=== PATIENT | female | born 2000 | race Asian ===

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

== ENCOUNTER 2022-09-02 14:44 | Emergency (ER) | payer OTHER, SELFPAY ==
[2022-09-02] VITALS (23 sets, daily range): BP systolic 122–148; BP diastolic 67–83; PULSE 57–83; RESP 10–19; TEMP 36.8; O2SAT 98–100
--- NOTE | ~2022-09-02 | XR_ITS ---
XR chest 2V DATE: 09/02/2022 15:16 INDICATION: Chest pain with inspiration for a few days. Cough beginning last night. TECHNIQUE: PA and lateral views COMPARISON: 08/30/11 2 view chest FINDINGS: Status post sternotomy. Normal heart size. No hilar or mediastinal enlargement. No pulmo nary infiltrate or consolidation, pulmonary vascular congestion or pleural effusion or pneumothorax. Mild thoracic dextroscoliosis. Spina bifida occulta at T1. IMPRESSION: No active cardiopulmonary disease Reviewed, dictated and finalized at location A. [employer]
--- NOTE | 2022-09-02 14:55 | ECG_ITS ---
Measurements Intervals Palmer Rate: 60 P: 19 VT: 139 QRS: 31 QRSD: 94 T: 29 QT: 428 QTc: 429 Interpretive Statements SINUS RHYTHM WITH SINUS ARRHYTHMIA CANNOT RULE OUT SEPTAL INFARCT, AGE INDETERMINATE ABNORMAL ECG NO PREVIOUS ECG AVAILABLE FOR COMPARISON Electronically Signed On 09-02-2022 19:52:56 [employer] by Tao Huerta D.O.
[2022-09-02 16:03] LABS: Basophils Absolute Auto 0.1 K/mm3 (0.0-0.1); Eosinophils Absolute Auto 0.2 K/mm3 (0-0.3); Eosinophils Percent Auto 3.4 % (0-4.4); Hemoglobin 13.7 g/dL (12.0-15.0); Immature Granulocyte Absolute 0.01 K/mm3 (0.00-0.031); Immature Granulocyte Percent A 0.2 % (0-0.5); Lymphocytes Absolute Auto 1.76 K/mm3 (0.9-3.2); Lymphocytes Percent Auto 30.3 % (18.3-44.2); Mean Corpuscular HGB Conc 34.3 g/dl (32-36); Mean Corpuscular Hemoglobin 29.8 pg (26-34); Mean Corpuscular Volume 87.1 fl (80-100); Mean Platelet Volume 9.3 fl (7.4-10.4); Monocytes Absolute Auto 0.5 K/mm3 (0.1-0.6); Monocytes Percent Auto 9.1 % (2.6-8.5); Neutrophils Absolute Auto 3.3 K/mm3 (1.3-6.7); Platelet Count Result 318 k/mm3 (150-375); Red Blood Count 4.59 M/mm3 (4.2-5.4); Red Cell Distribution Width 11.9 % (11.5-14.5); White Blood Count 5.8 K/mm3 (4.5-10.0)
[2022-09-02 16:14] LABS: Alanine Aminotransferase 15 U/L (6-35); Albumin Level 4.5 g/dL (3.5-5.1); Alkaline Phosphatase 55 U/L (38-126); Anion Gap 14 mmol/L (8-16); Aspartate Amino Transferase 27 U/L (14-36); Bilirubin,Total 0.3 mg/dL (0.2-1.3); Blood Urea Nitrogen 14 mg/dL (7-17); Calcium 8.8 mg/dL (8.4-10.2); Carbon Dioxide 25 mmol/L (22-30); Chloride 103 mmol/L (98-107); Estimated CRCL calculation 63 ml/min; Estimated Glomerular Filt Rate > 60; Glucose 102 mg/dL (65-110); Potassium 3.8 mmol/L (3.4-5.0); Sodium 142 mmol/L (137-145)
--- NOTE | 2022-09-02 19:11 | ED.SOB ---
HPI - SOB/Dyspnea General Chief Complaint: Shortness of Breath/Dyspnea <Radha Huitron PA-C - Last Filed: 09/03/22 01:02> Stated Complaint: SOB/PAIN W/ INSPIRATION <Radha Huitron PA-C - Last Filed: 09/03/22 01:02> Time Seen by Provider: 09/02/22 19:01 <RESHMA Green Last Filed: 09/03/22 01:02> History of Present Illness HPI Narrative: Patient is a 22-year-old female with a history of VSD s/p repair when she was 5 years old, here for evaluation of chest pain over the past several days. Patient states the pain is present over her left lateral ribs, worse with inspiration. The pain lasts minutes at a time, today the pain lasted for about 10 minutes which prompted her ED evaluation. Currently pain-free at time of my evaluation. She has had a mild cough and states that she has been feeling somewhat short of breath over the past couple days as well. No leg swelling, fevers or chills, sick contacts. Patient had follow-up with a packager since closure; findings were reassuring. She did have an echocardiogram last year that was also repotedly reassuring. <Radha Huitron PA-C - Last Filed: 09/03/22 01:02> Related Data Allergies/Adverse Reactions: Allergies Allergy/AdvReac Type Severity Reaction Status Date / Time red dye Allergy Intermediate RASH Verified 04/03/21 12:00 Iodine and Iodide Containing Allergy Unknown Unknown Verified 04/03/21 12:00 Produc <RESHMA Green Last Filed: 09/03/22 01:02> Review of Systems Review of Systems: Gen.: Denies fevers or chills Eyes: Denies eye pain or visual change ENT: Denies congestion Respiratory: Reports shortness of breath and cough CV: Reports chest pain GI: Denies abdominal pain nausea, emesis or diarrhea denies burning, urgency, frequency or hematuria Musculoskeletal: Denies back pain or muscle pain Neuro: Denies numbness, tingling, weakness or focal weakness Skin: Denies rash Except as documented, all other systems reviewed and negative <Radha Huitron PA-C - Last Filed: 09/03/22 01:02> FOR[facility]LY [facility] Past Medical History Medical History: Medical History VSD (ventricular septal defect) Repaired at age 4, in [place] at age 7 and age 14 <Radha Huitron PA-C - Last Filed: 09/03/22 01:02> Surgical History Surgical History: Surgical History Hx of wisdom tooth extraction <Radha Huitron PA-C - Last Filed: 09/03/22 01:02> Social History Social History: Social History Smoking status: Never smoker Alcohol intake: never Substance use: never Substance use type: does not use <Radha Huitron PA-C - Last Filed: 09/03/22 01:02> Exam Narrative: APPEARANCE: Well appearing, no pain in distress, well-nourished. Head: Normocephalic and atraumatic. EYES: PERRLA/EOMI, conjunctivae clear NOSE: No nasal drainage EARS: External ear normal in appearance THROAT: Oropharynx is clear. Mucous membranes are moist. NECK: Supple. No adenopathy, no masses. RESPIRATORY: Airway patent, respirations nonlabored. Clear to auscultation bilaterally, no rales, rhonchi, wheezing. CARDIOVASCULAR: Regular rate and rhythm without murmurs, rubs, or gallops. ABDOMINAL: Normoactive bowel sounds. Soft, nontender, nondistended. No rebound tenderness or guarding. MUSCULOSKELETAL: Extremities are warm and well-perfused. Moves all extremities well. No edema. NEURO: Normal speech. No focal neurologic deficits. SKIN: Skin is warm and dry. No rashes. PSYCHIATRIC: Normal affect/mood. <Radha Huitron PA-C - Last Filed: 09/03/22 01:02> Course [employer]/PA Physician Supervision For this encounter, I have reviewed the mid-level provider documentation, treatment plan and medical decision ma
[2022-09-02 20:29] LABS: Influenza A QL RT-PCR Negative (Negative); Influenza B QL RT-PCR Negative (Negative); SARS-CoV-2 RNA PCR Negative
[2022-09-02 20:46] LABS: NT Pro B Type Natriuretic Pept 123 pg/mL (5-100); Troponin I < 0.012 ng/mL (0.000-0.034)
[2022-09-02 21:07] LABS: D Dimer < 0.27 ug/mL (<0.48)
== END 2022-09-02 21:49 | disposition home or self-care (01) ==
PROVIDERS: Family Medicine; Physician Assistant; Emergency Provider Emergency Medicine; PCP Family Medicine
DX: R07.9 Chest pain, unspecified (principal); Z20.822 Contact with and (suspected) exposure to COVID-19; Z87.74 Personal history of (corrected) congenital malformations of heart and circulatory system; R94.31 Abnormal electrocardiogram [ECG] [EKG]
CPT/HCPCS: 36415; 71046; 80053; 83880; 84484; 85025; 85380; 87502; 93005; 99284; U0003; U0005

== ENCOUNTER 2024-09-16 13:33 | Outpatient (CLI) | payer OTHER, SELFPAY ==
--- NOTE | 2024-09-16 13:51 | ECHO_ITS ---
Patient Info Name: Alda Reeves Age: 24 years : 2000 Gender: Female Ht: 62 in Wt: 120 lbs BSA: 1.55 m2 HR: 65 bpm BP: 117 / 79 mmHg Technical Quality: Fair Exam Date: 09/16/2024 1:54 PM Exam Location: Echo Lab Patient Status: Outpatient Admit Date: 09/16/2024 Staff Ordering Physician: Chika Braga PA-C Attending Provider: Chika Braga PA-C Referring Physician: Omi HARRIS; Exam Type: CA echo doppler color flow Study Info Indications R07.9 - Chest pain, unspecified Z87.74 - Personal history of (corrected) congenital malformations of heart and circulatory system Complete two-dimensional, color flow and Doppler transthoracic echocardiogram is performed. Summary 1. Complete two-dimensional, color flow and Doppler transthoracic echocardiogram is performed. 2. Left ventricular chamber dimension is normal. 3. Left ventricular systolic function is normal, estimated at 60-65%. 4. The left ventricular diastolic function is normal. 5. E/e' 6 is not elevated. 6. There is mild tricuspid valve regurgitation. 7. No pulmonary hypertension, estimated pulmonary arterial systolic pressure is 32 mmHg. 8. There is trace pulmonic regurgitation. Left Ventricle E/e' 6 is not elevated. Left ventricular chamber dimension is normal. Left ventricular systolic function is normal, estimated at 60-65%. The left ventricular diastolic function is normal. Right Ventricle Right ventricular chamber dimension is normal. Right ventricular systolic function is normal. Left Atria Left atrial chamber dimension is normal. Right Atria Right atrial chamber dimension is normal. Aortic Valve The aortic valve is trileaflet. There is no aortic valve stenosis. There is no aortic valve regurgitation. Pulmonic Valve There is trace pulmonic regurgitation. Mitral Valve There is no mitral valve stenosis. There is no mitral valve regurgitation. Tricuspid Valve There is mild tricuspid valve regurgitation. No pulmonary hypertension, estimated pulmonary arterial systolic pressure is 32 mmHg. Pericardium/Pleural There is no pericardial effusion. Inferior Vena Cava Normal inferior vena cava with >50% collapse upon inspiration consistent with normal right atrial pressure, 5 mmHg. Aorta The aortic root size at the sinus of Valsalva is normal. Left Ventricular Outflow Tract Name Value Normal LVOT 2D LVOT Diameter 1.9 cm LVOT Doppler LVOT Peak Gradient 5 mmHg LVOT Mean Gradient 2 mmHg LVOT VTI 20 cm LVOT VTI/AV VTI Ratio 0.8 LVOT Stroke Volume 57 ml LVOT CO 3.8 l/min LVOT CI 2.5 l/min/m2 Pulmonic Valve Name Value Normal PV Doppler PV Peak Gradient 4 mmHg PV Regurgitation Doppler MD Peak End Diastolic Velocity 77 cm/s Mitral Valve Name Value Normal MV Doppler MV Decel Dukes 565 cm/s2 MV PHT 46 ms MV Area (PHT) 4.8 cm2 4.0-5.0 MV Diastolic Function MV E Peak Velocity 90 cm/s MV A Peak Velocity 41 cm/s MV E/A 2.2 MV Decel Time 160 ms Tricuspid Valve Name Value Normal TV Regurgitation Doppler TR Peak Velocity 260 cm/s TR Peak Gradient 27 mmHg Estimated PAP/RSVP RA Pressure 5 mmHg <=5 PA Systolic Pressure 32 mmHg <36 RV Systolic Pressure 32 mmHg <36 Aorta Name Value Normal Ascending Aorta Ao Root Diameter (MM) 2.0 cm Ao Root Diam Index (MM) 1.3 cm/m2 Aortic Valve Name Value Normal AV Doppler AV Peak Velocity 132 cm/s AV Peak Gradient 7 mmHg AV Mean Gradient 3 mmHg AV VTI 24 cm AV Area (Cont Eq VTI) 2.4 cm2 >=3.0 AV Area (Cont Eq Stew) 2.5 cm2 AV Regurgitation 2D LVOT Area 2.9 cm2 Ventricles Name Value Normal LV Dimensions 2D/MM IVS Diastolic Thickness (2D) 0.8 cm 0.6-1.0 IVS Diastole Thickness (MM) 0.7 cm 0.6-0.9 LVID Diastole (2D) 4.4 cm 3.8-5.2 LVID Diastole (MM) 5.2 cm 3.8-5.2 LVIW Diastolic Thickness (2D) 0.8 cm 0.6-0.9 LVIW Diastolic Thickness (MM) 0.7 cm 0.6-0.9 LVID Systole (2D) 2.7 cm 2.2-3.5 LVID Systole (MM) 3.0 cm 2.2-3.5 LVOT Diameter 1.9 cm LV Mass (2D Cubed) 107.56 g 67.00-162.00 LV Mass Index (2D Cubed) 70 g/m2 43-95 Relative Wall Thickness (2D) 0.39 LV Mass (MM Cubed) 118.33 g 67.00-162.00 LV Mass Index (MM Cubed) 76 g/m2 43-95 Relative Wall Thickness (MM) 0.26 LV Fractional Shortening/Ejection Fraction 2D/MM LV Fractional Shortening (2D) 38 % 27-45 LV Fractional Shortening (MM) 42 % 27-45 LV EF (MM Teicholz) 73 % 54-74 LV EF (2D Teicholz) 68 % 54-74 LV Diastolic Volume (4C MOD) 69 ml LV EF (4C MOD) 77 % LV Diastolic Volume (2C MOD) 67 ml LV EF (2C MOD) 65 % LV Diastolic Volume (BP MOD) 68 ml 46-106 LV Diastolic Volume Index (BP MOD) 44 ml/m2 29-61 LV Systolic Volume (BP MOD) 20 ml 14-42 LV Systolic Volume Index (BP MOD) 13 ml/m2 8-24 LV EF (BP MOD) 71 % 54-74 LV Diastolic Length (4C) 7.5 cm LV Systolic Length (4C) 6.1 cm LV Stroke Volume (4C MOD) 53 ml Atria Name Value Normal LA Dimensions LA Dimension (MM) 3.1 cm 2.7-3.8 LA Volume (4C A-L) 22 ml LA Volume (BP A-L) 29 ml RA Dimensions RA Area (4C) 12.2 cm2 <=18.0 Report Signatures
== END 2024-09-16 13:34 | disposition home or self-care (01) ==
PROVIDERS: PCP Family Medicine; Visit Provider Student in an Organized Health Care Education/Training Program
DX: R07.9 Chest pain, unspecified (principal); I36.1 Nonrheumatic tricuspid (valve) insufficiency; Z77.21 Contact with and (suspected) exposure to potentially hazardous body fluids; Z87.74 Personal history of (corrected) congenital malformations of heart and circulatory system
CPT/HCPCS: 93306